=== PATIENT | female | born 1960 | race Caucasian/White ===

== ENCOUNTER → 2019-03-27 | Outpatient (REF) | payer BC | LOC: M LAB LCGH 17:52 | PROVIDERS: ATTEND Physician Assistant | DX: D22.5 Melanocytic nevi of trunk (principal) ==

== ENCOUNTER → 2021-05-20 | Outpatient (REF) | payer BC | LOC: M SFHCDERM 16:51 | PROVIDERS: ATTEND Nurse Practitioner Family | DX: L72.11 Pilar cyst (principal); L82.1 Other seborrheic keratosis; L57.0 Actinic keratosis ==

== ENCOUNTER → 2021-06-20 | Outpatient (REF) | payer BC | LOC: M SFHCDERM 17:14 | PROVIDERS: ATTEND Nurse Practitioner Family | DX: L72.11 Pilar cyst (principal) ==

== ENCOUNTER → 2022-05-21 | Outpatient (REF) | payer BC | LOC: M SFHCDERM 17:05 | PROVIDERS: ATTEND Nurse Practitioner Family | DX: D22.5 Melanocytic nevi of trunk (principal) ==